=== PATIENT | female | born 1950 | race Caucasian/White ===

== ENCOUNTER → 2021-03-06 | Outpatient (CLI) | payer BC, MEDICARE ==
--- NOTE | 2021-03-06 16:11 | RAD ---
MG BILAT SCREEN+SHYANNE 03/06/2021 1:55 PM INDICATION: Asymptomatic screening mammogram. COMPARISON: None available TECHNIQUE: 3D tomosynthesis was performed in CC and MLO projections. 2D views were obtained from the 3D data. CAD was utilized as needed. FINDINGS: Breast density: Category C: The breats are heterogeneously dense, which may obscure small masses. Right breast: There are no suspicious microcalcifications, masses or areas of architectural distortio n. Left breast: There is a high density mass appears circumscribed and the slightly outer, upper left br east at middle depth approximately 3.5 cm from the nipple. Further evaluation with targeted ultrasoun d is recommended. IMPRESSION: 1. Incomplete left mammogram. Additional imaging is recommended as detailed above. 2. Negative right mammogram. BI-RADS category: 0; Incomplete Recommendations: Recommend additional imaging for which the patient will need to be called back. Electronically signed by: Rebecca Wright MD (03/06/2021 4:08 PM) [email or web address]
== END ==
LOC: MAMMO 13:06
PROVIDERS: ATTEND Family Medicine
DX: Z12.31 Encounter for screening mammogram for malignant neoplasm of breast (principal)
CPT/HCPCS: 77063; 77067

== ENCOUNTER → 2021-04-27 | Outpatient (CLI) | payer BC, MEDICARE ==
--- NOTE | 2021-04-27 16:22 | RAD ---
EXAM: BONE DENSITY STUDY - DEXA DATE: 04/27/2021 1:59 PM INDICATION: Reason: SCREENING / Spl. Instructions: / History: . COMPARISON: No Prior TECHNIQUE: Lumbar vertebral and proximal femoral dual-energy X-ray absorptiometry (DXA) was performed on a central [employer] device. FINDINGS: SPINE ANALYSIS RESULTS: Average lumbar bone mineral density (BMD) (g/cm2): 1.148 Lumbar T-score (standard deviation relative to young adult mean BMD): -0.3 Lumbar Z-score (standard deviation relative to age matched control group): 1.6 SPINE CLASSIFICATION: Normal (T-score > -1.0). HIP ANALYSIS RESULTS: Right femoral neck bone mineral density (BMD) (g/cm2): 0.777 Femur T-score (standard deviation relative to young adult mean BMD): -1.9 Femur Z-score (standard deviation relative to age matched control group): -0.1 HIP CLASSIFICATION (World Health Organization): Osteopenia (T-score -1.0 to -2.5). Note: The 2009 International Society for Clinical Densitometry (ISCD) Official Positions state that osteoporosis in agma-menopausal and post-menopausal women and in men age 50 and older may be diagnose d if the T-score of the lumbar spine, total hip, or femoral neck is -2.5 or less. Hip BMD is reported from the femoral neck or total proximal femur whichever is lowest. In cases where lumbar or hip BMD cannot be obtained or is not valid, distal forearm BMD is acceptable. IMPRESSION: Based on the World Health Organization Guidelines, Bone Mineral Density values demonstrate normal bon e mineral density within the spine and osteopenia in the right hip. Electronically signed by: Yuri Contreras MD (04/27/2021 4:20 PM) [email or web address]
== END ==
LOC: MAMMO 13:27
PROVIDERS: ATTEND Family Medicine
DX: M85.80 Other specified disorders of bone density and structure, unspecified site (principal)
CPT/HCPCS: 77080